=== PATIENT | female | born 1985 | race Caucasian/White ===

== ENCOUNTER 2018-06-27 10:04 | Emergency (ER) | payer SELFPAY ==
--- NOTE | 2018-06-27 14:04 | EDPHYS ---
Physician Documentation [facility] Name: Marjorie White Age: 32 yrs Sex: Female : 1985 Arrival Date: 06/27/2018 Time: 10:06 Bed 12 Private MD: ED Physician Jett Rich HPI: 06/27 13:21 This 32 yrs old Female presents to ER via Ambulatory with complaints of kdr Breast Lump. 13:21 The patient states that for the last year, she has had a lump in her upper right kdr breast. She indicates that over the last month, it has increased in sized and is now painful and makes her entire breast swell. She denies any drainage from her nipple. Onset: The symptoms/episode began/occurred gradually, 1 year(s) ago. Severity of symptoms: At their worst the symptoms were mild in the emergency department the symptoms are unchanged. The patient has not experienced similar symptoms in the past. The patient has not recently seen a physician. 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 - Social history:: Smoking status: Patient/guardian denies using tobacco. - Ebola Screening: : Patient denies travel to an Ebola-affected area in the 21 days before illness onset. ROS: 13:21 Constitutional: Negative for fever, chills, and weight loss, Eyes: Negative for injury, kdr pain, redness, and discharge. 13:21 Cardiovascular: Positive for chest pain, of the anterior aspect of right upper chest. Exam: 13:21 Constitutional: This is a well developed, well nourished patient who is awake, alert, kdr and in no acute distress. 13:21 Chest/axilla: Inspection: normal, Palpation: tenderness, that is mild, of the anterior aspect of right upper chest, that totally reproduces the patient's complaints, Breasts: mass(es), that is small, in the right breast, that is tender, that is freely movable, nipple discharge, is not appreciated, rash, is not appreciated, swelling, is not appreciated, tenderness, that is mild of the right breast. Vital Signs: 10:12 BP 123 / 85; Pulse 92; Resp 18; Temp 98.0; Pulse Ox 98% on R/A; Weight 61.23 kg (R); aj1 Height 5 ft. 2 in. (157.48 cm) (R); Pain 6/10; 13:24 BP 124 / 80; Pulse 84; Resp 16 S; Pulse Ox 100% on R/A; jl7 10:12 Body Mass Index 24.69 (61.23 kg, 157.48 cm) aj1 MDM: 13:21 Data reviewed: vital signs, nurses notes, lab test result(s), radiologic studies. kdr Counseling: I had a detailed discussion with the patient and/or guardian regarding: the historical points, exam findings, and any diagnostic results supporting the discharge/admit diagnosis, radiology results, the need for outpatient follow up. 14:03 Patient medically screened. kdr 06/27 13:36 Order name: BREAST/AXILLA, LIMITED EDMS Administered Medications: No medications were administered Disposition: 06/27/18 14:03 Discharged to Home. Impression: Fibroadenosis of right breast. - Condition is Stable. - Discharge Instructions: Breast Self-Awareness, [id number], Fibrocystic Breast Changes, Gpha-ed-Kadp. - Prescriptions for Tramadol 50 mg Oral Tablet - take 1 tablet by ORAL route every 8 hours as needed; 12 tablet. - Medication Reconciliation Form, Thank You Letter form. - Follow up: Private Physician; When: 2 - 3 days; Reason: If symptoms return, Further diagnostic work-up, Recheck today's complaints, Continuance of care, Re-evaluation by your physician. - Problem is an ongoing problem. - Symptoms are unchanged. Signatures: Dispatcher [employer] EDMS Marjorie Armando RN RN aj1 Jett Rich MD MD kdr Froilan Mckeon RN RN jl7 Corrections: (The following items were deleted from the chart) 13:34 13:22 Extrmty Nonvasular Limited+US.RAD.BRZ ordered. EDNE EDMS 13:36 13:34 Extremity Nonvascular Complete ordered. EDNE EDMS 14:15 14:03 06/27/2018 14:03 Discharged to Home. Impression: Fibroadenosis of right breast. jl7 Condition is Stable. Forms are Medication Reconciliation Form, Thank You Letter, Antibiotic Education, Prescription Opioid Use. Follow up: Private Physician; When: 2 - 3 days; Reason: If symptoms return, Further diagnostic work-up, Recheck today's complaints, Continuance of care, Re-evaluation by your physician. Problem is an ongoing problem. Symptoms are unchanged. kdr
--- NOTE | 2018-06-27 14:04 | ER ---
Nurse's Notes [facility] Name: Marjorie White Age: 32 yrs Sex: Female : 1985 Arrival Date: 06/27/2018 Time: 10:06 Bed 12 Private MD: Diagnosis: Fibroadenosis of right breast Presentation: 06/27 10:10 Presenting complaint: Patient states: "I have a really big abnormal lump on my breast, aj1 its giving me a little bit of pain" Reports that when she first found the bump a year ago it was really small, but now it feels much bigger. Transition of care: patient was not received from another setting of care. Onset of symptoms was 2017. Risk Assessment: Do you want to hurt yourself or someone else? Patient reports no desire to harm self or others. Initial Sepsis Screen: Does the patient meet any 2 criteria? No. Patient's initial sepsis screen is negative. Does the patient have a suspected source of infection? No. Patient's initial sepsis screen is negative. Care prior to arrival: None. 10:10 Method Of Arrival: Ambulatory aj1 10:10 Acuity: KIRIT 4 aj1 Triage Assessment: 10:12 General: Appears in no apparent distress. comfortable, Behavior is calm, cooperative, aj1 appropriate for age. Pain: Complains of pain in right breast Pain currently is 6 out of 10 on a pain scale. Quality of pain is described as aching, throbbing. Neuro: Level of Consciousness is awake, alert, obeys commands, Oriented to person, place, time, situation. Cardiovascular: Patient's skin is warm and dry. Respiratory: Airway is patent Respiratory effort is even, unlabored, Respiratory pattern is regular, symmetrical. 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 - Social history:: Smoking status: Patient/guardian denies using tobacco. - Ebola Screening: : Patient denies travel to an Ebola-affected area in the 21 days before illness onset. Screenin:14 Abuse screen: Denies threats or abuse. Denies injuries from another. Nutritional jl7 screening: No deficits noted. Tuberculosis screening: No symptoms or risk factors identified. Fall Risk None identified. Assessment: 13:14 General: Appears in no apparent distress. uncomfortable, Behavior is calm, cooperative, jl7 appropriate for age. Pain: Complains of pain in right breast Quality of pain is described as ''Sore". Neuro: Level of Consciousness is awake, alert, obeys commands, Oriented to person, place, time, situation. Cardiovascular: Heart tones present Patient's skin is warm and dry. Respiratory: Airway is patent Respiratory effort is even, unlabored, Respiratory pattern is regular, symmetrical. Derm: Skin is pink, warm \\T\\ dry. lump palpated on right breast. Vital Signs: 10:12 BP 123 / 85; Pulse 92; Resp 18; Temp 98.0; Pulse Ox 98% on R/A; Weight 61.23 kg (R); aj1 Height 5 ft. 2 in. (157.48 cm) (R); Pain 6/10; 13:24 BP 124 / 80; Pulse 84; Resp 16 S; Pulse Ox 100% on R/A; jl7 10:12 Body Mass Index 24.69 (61.23 kg, 157.48 cm) aj1 ED Course: 10:06 Patient arrived in ED. as 10:11 Triage completed. aj1 10:12 Arm band placed on Patient placed in waiting room, Patient notified of wait time. aj1 13:06 Froilan Mckeon, LIANE is Primary Nurse. jl7 13:09 Jett Rich MD is Attending Physician. kdr 13:14 Patient has correct armband on for positive identification. Bed in low position. Call jl7 light in reach. Side rails up X 1. Pulse ox on. NIBP on. 13:46 BREAST/AXILLA, LIMITED In Process Unspecified. EDMS 14:14 No provider procedures requiring assistance completed. Patient did not have IV access jl7 during this emergency room visit. Administered Medications: No medications were administered Outcome: 14:03 Discharge ordered by . kdr 14:14 Discharged to home ambulatory. jl7 14:14 Condition: stable 14:14 Discharge instructions given to patient, Instructed on discharge instructions, follow up and referral plans. medication usage, Demonstrated understanding of instructions, follow-up care, medications, Prescriptions given X 1. 14:15 Patient left the ED. jl7 Signatures: Dispatcher [employer] Marjorie Capone, LIANE RN aj1 Jett Rich MD MD kdr Martinez, Amelia as Leal, Jahala, RN RN jl7
--- NOTE | 2018-06-27 14:24 | RAD REPORT ---
EXAM DESCRIPTION: US - BREAST/AXILLA, LIMITED - 06/27/2018 1:46 pm CLINICAL HISTORY: Breast mass COMPARISON: None FINDINGS: Patient has a palpable area within the upper right breast. Ultrasound demonstrates a 2.4 centimeter mildly lobulated mass long axis parallel to the chest wall. Cyst cluster measuring 1.2 centimeters also is present within the upper right breast. IMPRESSION: 2.4 centimeter palpable mass in the upper right breast most likely represents a fibroade noma. 1.2 centimeter cyst cluster within the upper right breast likely benign Follow-up ultrasound in 6 months recommended to assess stability. BI-RADS probably benign
== END 2018-06-27 14:15 | disposition home or self-care (01) ==
LOC: ER 10:04
DX: N60.21 Fibroadenosis of right breast (principal)
CPT/HCPCS: 76642; 99283